=== PATIENT | male | born 1965 | race Asian ===

== ENCOUNTER 2019-07-21 04:20 | Inpatient (IN) | payer MEDICAID ==
[2019-07-21] VITALS (14 sets, daily range): BP systolic 110–137; BP diastolic 65–88
[~2019-07-21] VITALS: Ht 177.8 cm; Wt 104.5 kg
[2019-07-21] MEDS ORDERED: METF500T PO (04:45)
[2019-07-21] MEDS ORDERED: ATOR10TA87 PO (04:47)
--- NOTE | 2019-07-21 04:47 | NUR ---
PER VERBALIZATION FROM DR. CASTILLO NOT TO ORDER ACS PROTOCOL BUT TO ORDER EKG AND 0 HOUR TROPONIN, THAT ROSALES DID AND EXTENSIVE WORK UP AND DR. CASTILLO WILL ORDER ANYTHING NEEDED OTHER THAN THE 2 VERBALIZED ORDERS DURING TRIAGE
[2019-07-21] MEDS: nitroGLYCERIN-Tridil 50MG/D5W 250 ML IV PRN (05:07)
--- NOTE | 2019-07-21 05:56 | NUR ---
Pt says pn is coming and going now with no add'l. relief from cont. NTG admin
--- NOTE | 2019-07-21 05:58 | NUR ---
NTG increased to 20 mcg/min
[2019-07-21] MEDS ORDERED: potassium Cl 20 mEq SR tablet PO PRN (06:10)
[2019-07-21] MEDS ORDERED: magnesium Cl slow-release 64mg tablet PO PRN (06:10)
[2019-07-21] MEDS ORDERED: magnesium 2GM in 50ml NS 50 ML IV PRN (06:10)
[2019-07-21] MEDS ORDERED: morphine 2 MG/ML inj. syringe IV PRN (06:10)
[2019-07-21] MEDS ORDERED: magnesium 4gm in 100ml NS 100 ML IV PRN (06:10)
[2019-07-21] MEDS ORDERED: acetaminophen 325mg tablet PO PRN ×2 (06:10→18:40)
[2019-07-21] MEDS ORDERED: potassium CL 10mEq/100ml bag 100 ML IV PRN ×2 (06:10)
[2019-07-21] MEDS ORDERED: ondansetron/PF 4mg/2ml inj IV PRN (06:10)
[2019-07-21] MEDS ORDERED: pantoprazole 40 MG vial IV ONE (06:35)
[2019-07-21] MEDS ORDERED: enoxaparin 80mg/0.8ml syringe SUBCUT ONE (06:50)
[2019-07-21] MEDS ORDERED: enoxaparin 30mg/0.3ml syringe SUBCUT ONE (06:50)
[2019-07-21] MEDS: K and/or MAG REPLACEMENT MC SCH ×2 (08:00→20:00)
[2019-07-21] MEDS ORDERED: heparin 25,000 UNIT/250ml bag 250 ML IV SCH (10:26)
[2019-07-21] MEDS ORDERED: heparin 10,000 units/1 ML INJ IV ONE (10:30)
[2019-07-21] MEDS ORDERED: normal saline 1000ml 1,000 ML IV SCH (10:30)
[2019-07-21] MEDS ORDERED: heparin 10,000 units/1 ML INJ IV PRN (10:30)
--- NOTE | 2019-07-21 10:30 | NUR ---
New orders from Dr. Khalil: Metoprolol 25 mg PO BID, Normal saline @ 100 mL/hour, chest x-ray, heparin gtt per protocol. NPO now.
[2019-07-21 10:58] LABS: BASOPHILS % (AUTO) 0.1 % (0-1); EOSINOPHILS % (AUTO) 0 % (0-6); HEMATOCRIT 46.9 % (42.0-52.0); HEMOGLOBIN 15.6 g/dl (14.0-17.9); LYMPHOCYTES # (AUTO) 1.2 X10'3 (1.1-4.8); LYMPHOCYTES % (AUTO) 10.9 % (21-51); MEAN CORPUSCULAR HEMOGLOBIN 28.2 PG (27.0-31.0); MEAN CORPUSCULAR HGB CONC 33.2 g/dL (33.0-36.5); MEAN CORPUSCULAR VOLUME 84.8 FL (78-98); MONOCYTES # (AUTO) 0.8 X10'3 (0-0.9); MONOCYTES % (AUTO) 7.1 % (2-12); NEUTROPHILS # (AUTO) 9.2 X10'3 (1.8-7.7); NEUTROPHILS % (AUTO) 81.9 % (42-75); PLATELET COUNT 189 X10'3 (140-440); RED BLOOD COUNT 5.53 X10'6 (4.70-6.10); RED CELL DISTRIBUTION WIDTH 13.4 % (11.5-14.5); WHITE BLOOD COUNT 11.2 X10'3 (4.5-11.0)
[2019-07-21 11:01] LABS: PARTIAL THROMBOPLASTIN TIME 30 SECONDS (22-32)
[2019-07-21] MEDS: metoprolol tartrate 25mg tablet PO SCH ×2 (12:08→19:38)
[2019-07-21 13:05] LABS: ALBUMIN 3.4 G/DL (3.4-5.0); ANION GAP 9 (8-16); BLOOD UREA NITROGEN 16 MG/DL (7-18); BUN/CREATININE RATIO 17.4 (5.4-32.0); CALCIUM 8.2 MG/DL (8.5-10.1); CHLORIDE 107 MMOL/L (99-107); CREATININE 0.92 MG/DL (0.60-1.10); GLUCOSE 163 MG/DL (70-104); POTASSIUM 3.6 MMOL/L (3.5-5.1); SODIUM 142 MMOL/L (135-145); TOTAL CARBON DIOXIDE 26.4 MMOL/L (24-32); eGFR 86 ML/MIN
--- NOTE | 2019-07-21 13:29 | NUR ---
PAGER ID: [phone] MESSAGE: [phone] [id number]. LULU pt. Leticia Mujica. pt trop came back at .03. pt. is going to [facility] at 1530. thank you. NORMAN Freeman
[2019-07-21 13:35] LABS: MAGNESIUM 1.8 MG/DL (1.5-2.4)
--- NOTE | 2019-07-21 16:13 | NUR ---
Critical lab: Troponin 35.89. Notified primary RNLori.
[2019-07-21] MEDS ORDERED: iohexol 350 MG/ML 50ML vial IV ONE (16:24)
[2019-07-21] MEDS ORDERED: LIDOcaine 1% (10mg/ml)w/preservative injection 20ml MDV ONE (16:24)
[2019-07-21] MEDS ORDERED: iohexol 350MG/ML 100ml bottle IV ONE (16:24)
[2019-07-21] MEDS ORDERED: fentaNYL/PF 50MCG/1 ML 2ML syringe ONE (16:24)
[2019-07-21] MEDS ORDERED: midazolam 2 mg/2 ml injection ONE (16:24)
--- NOTE | 2019-07-21 16:53 | NUR ---
pt. left floor for Heart Cath
[2019-07-21] MEDS ORDERED: tirofiban 5mg in NS 100mL 100 ML IV ONE (17:23)
--- NOTE | 2019-07-21 17:55 | NUR ---
received pt report from Merry AUSTIN
--- NOTE | 2019-07-21 18:10 | NUR ---
pt arrived from clinical lab clerk. rt groin no hematoma and right pedal pulse palpable; will continue to monitor.
[2019-07-21] MEDS ORDERED: aspirin 81mg tab.chew PO ONE (18:40)
[2019-07-21] MEDS ORDERED: magnesium hydroxide 30ml (MOM) UD suspension PO PRN (18:40)
[2019-07-21] MEDS ORDERED: morphine 4 MG/ML inj SYRINge IV PRN (18:40)
[2019-07-21] MEDS ORDERED: nitroGLYCERIN 0.4mg SUBLingual tab SL PRN (18:40)
[2019-07-21] MEDS ORDERED: proCHLORperazine 10 MG/2 ml inj IV PRN (18:40)
[2019-07-21] MEDS ORDERED: cyclobenzaprine 10mg tablet PO PRN (18:40)
[2019-07-21] MEDS ORDERED: OXAZEpam 15mg capsule PO PRN (18:40)
[2019-07-21] MEDS ORDERED: HYDROcodone/acetaminophen 10/325mg tab PO PRN (18:40)
--- NOTE | 2019-07-21 18:43 | NUR ---
Patient report given to Damion AUSTIN, questions answered & plan of care reviewed with .
[2019-07-21] MEDS ORDERED: furosemide 20 MG/2 ML vial IV ONE (19:05)
[2019-07-21] MEDS: furosemide 40mg tablet PO SCH (19:38)
[2019-07-21] MEDS: docusate sod 100mg capsule PO SCH (19:38)
[2019-07-21] MEDS: potassium chloride 10mEq ER tablet PO SCH (19:38)
[2019-07-21] MEDS: sodium chloride 0.45% 1,000 ML IV SCH (19:40)
[2019-07-21 20:42] LABS: HEMOGLOBIN A1C 5.6 % (4.5-6.2)
[2019-07-21] MEDS ORDERED: temazepam 15mg capsule PO PRN (21:00)
[2019-07-21] MEDS: HYDROcodone/acetaminophen 10/325mg tab PO PRN (21:26)
[2019-07-22] VITALS (29 sets, daily range): BP systolic 104–131; BP diastolic 54–90
[2019-07-22 02:05] LABS: BASOPHILS % (AUTO) 0.1 % (0-1); EOSINOPHILS % (AUTO) 0.1 % (0-6); HEMATOCRIT 45.2 % (42.0-52.0); HEMOGLOBIN 15.1 g/dl (14.0-17.9); LYMPHOCYTES # (AUTO) 1.4 X10'3 (1.1-4.8); LYMPHOCYTES % (AUTO) 12.1 % (21-51); MEAN CORPUSCULAR HGB CONC 33.5 g/dL (33.0-36.5); MEAN CORPUSCULAR VOLUME 83.4 FL (78-98); MEAN PLATELET VOLUME 9.4 FL (7.4-10.4); MONOCYTES # (AUTO) 1.2 X10'3 (0-0.9); MONOCYTES % (AUTO) 10.2 % (2-12); NEUTROPHILS % (AUTO) 77.5 % (42-75); PLATELET COUNT 182 X10'3 (140-440); RED BLOOD COUNT 5.42 X10'6 (4.70-6.10); RED CELL DISTRIBUTION WIDTH 13.6 % (11.5-14.5); WHITE BLOOD COUNT 11.6 X10'3 (4.5-11.0)
[2019-07-22 02:11] LABS: ALANINE AMINOTRANSFERASE 78 U/L (12-78); ALBUMIN 3.2 G/DL (3.4-5.0); ALKALINE PHOSPHATASE 64 IU/L (46-116); ANION GAP 6 (8-16); ASPARTATE AMINO TRANSFERASE 404 U/L (10-37); BILIRUBIN,TOTAL 0.8 MG/DL (0.1-1.0); BLOOD UREA NITROGEN 12 MG/DL (7-18); BUN/CREATININE RATIO 13.8 (5.4-32.0); CHLORIDE 104 MMOL/L (99-107); CREATININE 0.87 MG/DL (0.60-1.10); GLUCOSE 126 MG/DL (70-104); MAGNESIUM 1.7 MG/DL (1.5-2.4); POTASSIUM 3.3 MMOL/L (3.5-5.1); SODIUM 139 MMOL/L (135-145); TOTAL CARBON DIOXIDE 28.7 MMOL/L (24-32); TOTAL PROTEIN 6.3 G/DL (6.4-8.2); eGFR > 90 ML/MIN
[2019-07-22 02:40] LABS: TROPONIN I 79.92 NG/ML (0.0-0.05)
[2019-07-22] MEDS: HYDROcodone/acetaminophen 10/325mg tab PO PRN (03:03)
[2019-07-22] MEDS: nitroGLYCERIN-Tridil 50MG/D5W 250 ML IV PRN (03:29)
[2019-07-22] MEDS: K and/or MAG REPLACEMENT MC SCH ×2 (08:00→20:00)
[2019-07-22] MEDS: metoprolol tartrate 25mg tablet PO SCH ×2 (08:03→20:08)
[2019-07-22] MEDS: potassium chloride 10mEq ER tablet PO SCH ×2 (08:03→20:05)
[2019-07-22] MEDS: aspirin 81mg tab.chew PO SCH (08:04)
[2019-07-22] MEDS: potassium Cl 20 mEq SR tablet PO PRN ×3 (08:04→17:50)
[2019-07-22] MEDS: atorvastatin 20mg tablet PO SCH (08:04)
[2019-07-22] MEDS: docusate sod 100mg capsule PO SCH ×2 (08:04→20:05)
[2019-07-22] MEDS: lisinopril 5mg tablet PO SCH (08:04)
[2019-07-22] MEDS: furosemide 40mg tablet PO SCH ×2 (08:05→20:32)
[2019-07-22] MEDS: sodium chloride 0.45% 1,000 ML IV SCH (08:05)
--- NOTE | 2019-07-22 10:38 | NUR ---
Dr Khalil notified of surgical consult. He thanks for the call, and that he would call Dr Mireles. No new orders
[2019-07-22] MEDS ORDERED: ATOR20TA66 PO (10:47)
[2019-07-22] MEDS ORDERED: DORZ10DR2 EACHEYE (10:47)
[2019-07-22] MEDS ORDERED: XAL0.005OS EACHEYE (10:47)
--- NOTE | 2019-07-22 11:08 | NUR ---
Spoke with Dr Khalil; orders received to Stop heparin and give plavix; then have chemical lab technician angio seal 2-3 hours after heparin off. Titrate nitro off after hemostasis if patient remains stable. plan for patient to discharged, and then come back in 6 weeks for surgical needs.
[2019-07-22] MEDS ORDERED: clopidogrel 300mg tablet PO ONE (11:10)
--- NOTE | 2019-07-22 12:02 | NUR ---
DM Consult: Pt A1C less than 7 and not appropriate for DM ed at this time. Addendum: 07/22/19 at [address] Amended: Links added.
--- NOTE | 2019-07-22 14:41 | NUR ---
DM consult: Pt with A1c 5.6, DM education not warranted at this time. Will continue to follow. Addendum: 07/22/19 at [address] Amended: Links added.
--- NOTE | 2019-07-22 18:15 | NUR ---
Patient in room ICU 2037. I have received report and had the opportunity to ask questions and assume patient care. Pt received eating dinner. Awake alert & oriented on room air, oxygen saturation 95%. Denies chest pain. Right femoral site with occlusive dressing, no hematoma or bleeding pedal pulse is palpable & capillary refill is brisk to all nail beds. Right EJ catheter is saline locked and capped. left F/A #20 G peripheral IV with NS TKO. No distress at change of shift.
--- NOTE | 2019-07-22 20:00 | NUR ---
Pt declined PM care/bath. Would like to have bath rendered in AM.
[2019-07-23] VITALS (19 sets, daily range): BP systolic 101–130; BP diastolic 46–90
[2019-07-23 04:08] LABS: BASOPHILS % (AUTO) 0.2 % (0-1); EOSINOPHILS % (AUTO) 0.3 % (0-6); HEMATOCRIT 49.7 % (42.0-52.0); HEMOGLOBIN 16.9 g/dl (14.0-17.9); LYMPHOCYTES # (AUTO) 1.4 X10'3 (1.1-4.8); LYMPHOCYTES % (AUTO) 13.3 % (21-51); MEAN CORPUSCULAR HEMOGLOBIN 28.6 PG (27.0-31.0); MEAN CORPUSCULAR HGB CONC 33.9 g/dL (33.0-36.5); MEAN CORPUSCULAR VOLUME 84.3 FL (78-98); MEAN PLATELET VOLUME 9.1 FL (7.4-10.4); MONOCYTES # (AUTO) 1.2 X10'3 (0-0.9); MONOCYTES % (AUTO) 10.9 % (2-12); NEUTROPHILS # (AUTO) 8.1 X10'3 (1.8-7.7); NEUTROPHILS % (AUTO) 75.3 % (42-75); PLATELET COUNT 154 X10'3 (140-440); RED BLOOD COUNT 5.89 X10'6 (4.70-6.10); RED CELL DISTRIBUTION WIDTH 13.4 % (11.5-14.5); WHITE BLOOD COUNT 10.7 X10'3 (4.5-11.0)
[2019-07-23 04:18] LABS: ALBUMIN 3.1 G/DL (3.4-5.0); ANION GAP 3 (8-16); BLOOD UREA NITROGEN 11 MG/DL (7-18); BUN/CREATININE RATIO 10.6 (5.4-32.0); CALCIUM 8.5 MG/DL (8.5-10.1); CHLORIDE 105 MMOL/L (99-107); CREATININE 1.04 MG/DL (0.60-1.10); GLUCOSE 103 MG/DL (70-104); POTASSIUM 3.5 MMOL/L (3.5-5.1); SODIUM 139 MMOL/L (135-145); TOTAL CARBON DIOXIDE 30.8 MMOL/L (24-32); eGFR 74 ML/MIN
--- NOTE | 2019-07-23 06:26 | NUR ---
Problems reprioritized. Patient report given, questions answered & plan of care reviewed with Jhoana AUSTIN. Bedside report given. Right femoral site & pedal pulses checked. Pt stable & pain free at change of shift.
--- NOTE | 2019-07-23 06:57 | NUR ---
Patient in room ICU 2037. I have received report from NORMAN Quinonez and had the opportunity to ask questions and assume patient care.
[2019-07-23] MEDS: K and/or MAG REPLACEMENT MC SCH ×2 (08:00→18:49)
[2019-07-23] MEDS: potassium chloride 10mEq ER tablet PO SCH ×2 (08:11→19:54)
[2019-07-23] MEDS: aspirin 81mg tab.chew PO SCH (08:11)
[2019-07-23] MEDS: lisinopril 5mg tablet PO SCH (08:12)
[2019-07-23] MEDS: metoprolol tartrate 25mg tablet PO SCH ×2 (08:12→19:55)
[2019-07-23] MEDS: clopidogrel 75mg tablet PO SCH (08:13)
[2019-07-23] MEDS: atorvastatin 20mg tablet PO SCH (08:13)
[2019-07-23] MEDS: furosemide 40mg tablet PO SCH ×2 (08:13→19:54)
[2019-07-23] MEDS: docusate sod 100mg capsule PO SCH ×2 (08:13→19:54)
--- NOTE | 2019-07-23 15:50 | NUR ---
Problems reprioritized. Patient report given, questions answered & plan of care reviewed with NORMAN Edwards. Placed tele monitor on patient #[id number], transferred patient to PCU via wheelchair, all patient needs met at this time.
--- NOTE | 2019-07-23 15:50 | NUR ---
Patient in room PCU 3014. I have received report from NORMAN Ely and had the opportunity to ask questions and assume patient care.
--- NOTE | 2019-07-23 15:53 | NUR ---
pt arrived on unit.
--- NOTE | 2019-07-23 16:30 | NUR ---
I have reviewed and agree with the physical assessment done by Jhoana Aquino RN.
--- NOTE | 2019-07-23 18:11 | NUR ---
Problems reprioritized. Patient report given, questions answered & plan of care reviewed with NORMAN Ferguson.
--- NOTE | 2019-07-23 18:25 | NUR ---
Patient in room PCU 3014. I have received report from Grace AUSTIN and had the opportunity to ask questions and assume patient care.
[2019-07-24 02:00] VITALS: BP 120/83
[2019-07-24 06:00] VITALS: BP 123/80
--- NOTE | 2019-07-24 06:10 | NUR ---
Problems reprioritized. Patient report given, questions answered & plan of care reviewed with Grace RN
[2019-07-24 06:15] LABS: BASOPHILS % (AUTO) 0.3 % (0-1); EOSINOPHILS # (AUTO) 0.1 X10'3 (0-0.9); EOSINOPHILS % (AUTO) 0.5 % (0-6); HEMATOCRIT 52.9 % (42.0-52.0); HEMOGLOBIN 17.8 g/dl (14.0-17.9); LYMPHOCYTES # (AUTO) 1.6 X10'3 (1.1-4.8); LYMPHOCYTES % (AUTO) 15.5 % (21-51); MEAN CORPUSCULAR HEMOGLOBIN 28.3 PG (27.0-31.0); MEAN CORPUSCULAR HGB CONC 33.6 g/dL (33.0-36.5); MEAN CORPUSCULAR VOLUME 84.2 FL (78-98); MEAN PLATELET VOLUME 9.4 FL (7.4-10.4); MONOCYTES # (AUTO) 1.2 X10'3 (0-0.9); MONOCYTES % (AUTO) 11.9 % (2-12); NEUTROPHILS # (AUTO) 7.3 X10'3 (1.8-7.7); NEUTROPHILS % (AUTO) 71.8 % (42-75); PLATELET COUNT 171 X10'3 (140-440); RED BLOOD COUNT 6.29 X10'6 (4.70-6.10); RED CELL DISTRIBUTION WIDTH 13.6 % (11.5-14.5); WHITE BLOOD COUNT 10.1 X10'3 (4.5-11.0)
[2019-07-24 06:20] LABS: ALBUMIN 3.1 G/DL (3.4-5.0); ANION GAP 7 (8-16); BLOOD UREA NITROGEN 18 MG/DL (7-18); BUN/CREATININE RATIO 19.4 (5.4-32.0); CHLORIDE 104 MMOL/L (99-107); CREATININE 0.93 MG/DL (0.60-1.10); GLUCOSE 108 MG/DL (70-104); MAGNESIUM 2.3 MG/DL (1.5-2.4); POTASSIUM 3.5 MMOL/L (3.5-5.1); SODIUM 138 MMOL/L (135-145); TOTAL CARBON DIOXIDE 27.1 MMOL/L (24-32); eGFR 85 ML/MIN
--- NOTE | 2019-07-24 06:28 | NUR ---
Patient in room PCU 3014. I have received report from NORMAN Ferguson and had the opportunity to ask questions and assume patient care.
[2019-07-24] MEDS: atorvastatin 20mg tablet PO SCH (07:50)
[2019-07-24] MEDS: furosemide 40mg tablet PO SCH ×2 (07:50→20:13)
[2019-07-24] MEDS: lisinopril 5mg tablet PO SCH (07:50)
[2019-07-24] MEDS: aspirin 81mg tab.chew PO SCH (07:50)
[2019-07-24] MEDS: potassium chloride 10mEq ER tablet PO SCH ×2 (07:50→20:12)
[2019-07-24] MEDS: clopidogrel 75mg tablet PO SCH (07:50)
[2019-07-24] MEDS: metoprolol tartrate 25mg tablet PO SCH ×2 (07:51→20:13)
[2019-07-24] MEDS: docusate sod 100mg capsule PO SCH ×2 (07:58→20:14)
[2019-07-24] MEDS: K and/or MAG REPLACEMENT MC SCH ×2 (07:59→18:42)
[2019-07-24 11:00] VITALS: BP 118/83
--- NOTE | 2019-07-24 11:40 | NUR ---
Problems reprioritized. Patient report given, questions answered & plan of care reviewed with NORMAN Mariee.
--- NOTE | 2019-07-24 18:14 | NUR ---
Problems reprioritized. Patient report given, questions answered & plan of care reviewed with Marty RN.
[2019-07-24 19:00] VITALS: BP 138/90
[2019-07-24] MEDS: dorzolamide 2% ophthalmic drops 10ml EACHEYE SCH (20:12)
[2019-07-24] MEDS ORDERED: latanoprost 0.005% 2.5ml ophthalmic drops EACHEYE SCH (21:00)
[2019-07-24 23:00] VITALS: BP 132/89
[2019-07-25 03:00] VITALS: BP 112/77
[2019-07-25 06:00] VITALS: BP 123/88
[2019-07-25 06:14] LABS: BASOPHILS % (AUTO) 0.4 % (0-1); EOSINOPHILS # (AUTO) 0.1 X10'3 (0-0.9); EOSINOPHILS % (AUTO) 0.7 % (0-6); HEMATOCRIT 49.1 % (42.0-52.0); HEMOGLOBIN 16.8 g/dl (14.0-17.9); LYMPHOCYTES # (AUTO) 1.5 X10'3 (1.1-4.8); LYMPHOCYTES % (AUTO) 20.2 % (21-51); MEAN CORPUSCULAR HEMOGLOBIN 28.6 PG (27.0-31.0); MEAN CORPUSCULAR HGB CONC 34.2 g/dL (33.0-36.5); MEAN CORPUSCULAR VOLUME 83.6 FL (78-98); MEAN PLATELET VOLUME 9.5 FL (7.4-10.4); MONOCYTES # (AUTO) 0.9 X10'3 (0-0.9); MONOCYTES % (AUTO) 12.1 % (2-12); NEUTROPHILS # (AUTO) 4.9 X10'3 (1.8-7.7); NEUTROPHILS % (AUTO) 66.6 % (42-75); PLATELET COUNT 191 X10'3 (140-440); RED BLOOD COUNT 5.87 X10'6 (4.70-6.10); RED CELL DISTRIBUTION WIDTH 13.3 % (11.5-14.5); WHITE BLOOD COUNT 7.4 X10'3 (4.5-11.0)
[2019-07-25 06:15] LABS: ANION GAP 9 (8-16); BLOOD UREA NITROGEN 22 MG/DL (7-18); BUN/CREATININE RATIO 22.4 (5.4-32.0); CALCIUM 8.5 MG/DL (8.5-10.1); CHLORIDE 105 MMOL/L (99-107); CREATININE 0.98 MG/DL (0.60-1.10); GLUCOSE 106 MG/DL (70-104); MAGNESIUM 2.2 MG/DL (1.5-2.4); POTASSIUM 3.3 MMOL/L (3.5-5.1); SODIUM 141 MMOL/L (135-145); TOTAL CARBON DIOXIDE 27.1 MMOL/L (24-32); eGFR 80 ML/MIN
--- NOTE | 2019-07-25 06:32 | NUR ---
Problems reprioritized. Patient report given, questions answered & plan of care reviewed with CHERIE RN.
--- NOTE | 2019-07-25 06:58 | NUR ---
Patient in room PCU 3014. I have received report from NORMAN GUEVARA and had the opportunity to ask questions and assume patient care.
--- NOTE | 2019-07-25 07:21 | NUR ---
PAGER ID: [phone] MESSAGE: DR. CONCEPCION, [id number]/Josue LECHUGA+ [phone]. NEED REPLACEMENT ORDERS PLEASE. CHERIE [phone], TY
[2019-07-25] MEDS: K and/or MAG REPLACEMENT MC SCH (08:00)
[2019-07-25] MEDS: dorzolamide 2% ophthalmic drops 10ml EACHEYE SCH (08:27)
[2019-07-25] MEDS: aspirin 81mg tab.chew PO SCH (08:28)
[2019-07-25] MEDS: docusate sod 100mg capsule PO SCH (08:29)
[2019-07-25] MEDS: atorvastatin 20mg tablet PO SCH (08:30)
[2019-07-25] MEDS: potassium chloride 10mEq ER tablet PO SCH (08:30)
[2019-07-25] MEDS: furosemide 40mg tablet PO SCH (08:30)
[2019-07-25] MEDS: metoprolol tartrate 25mg tablet PO SCH (08:31)
[2019-07-25] MEDS: lisinopril 5mg tablet PO SCH (08:32)
[2019-07-25] MEDS: clopidogrel 75mg tablet PO SCH (08:32)
[2019-07-25 11:00] VITALS: BP 109/84
[2019-07-25] MEDS ORDERED: potassium Cl 20 mEq SR tablet PO STA (11:23)
[2019-07-25] MEDS ORDERED: ASPI-1265 PO (11:36)
[2019-07-25] MEDS ORDERED: LISI-642 PO (11:36)
[2019-07-25] MEDS ORDERED: METO25TA6 PO (11:36)
[2019-07-25] MEDS ORDERED: NITR0.4T51 SL (11:36)
[2019-07-25] MEDS ORDERED: CLOP75TA35 PO (11:36)
[2019-07-25] MEDS ORDERED: POTA10TA19 PO (11:36)
[2019-07-25] MEDS ORDERED: METF500T PO (11:36)
[2019-07-25] MEDS ORDERED: ATOR20TA66 PO (11:36)
--- NOTE | 2019-07-25 12:55 | NUR ---
DISCUSSED DISCHARGE INSTRUCTIONS WITH PT AND HIS DAUGHTER BY CELL PHONE, RE:LIMITED SLOVENIAN, DAUGHTER UNDERSTANDS.
--- NOTE | 2019-07-25 13:20 | NUR ---
PIV X2 2 DC'D BY NORMAN VILLA.
[2019-07-26] MEDS ORDERED: furosemide 40mg tablet PO SCH (08:00)
== END 2019-07-25 13:27 | disposition home or self-care (01) | DRG 190 ==
LOC: ER 04:21 → ED HOLD 06:13 → PCU 3S 07:38 → ICU 2S 18:15 → PCU 3S 07-23 15:50
PROVIDERS: ADMIT Internal Medicine; ATTEND Internal Medicine Critical Care Medicine
PROC: 4A023N7 Measurement of Cardiac Sampling and Pressure, Left Heart, Percutaneous Approach (ICD-10-PCS; principal; 2019-07-21)
PROC: B2111ZZ Fluoroscopy of Multiple Coronary Arteries using Low Osmolar Contrast (ICD-10-PCS; 2019-07-21)
PROC: B2151ZZ Fluoroscopy of Left Heart using Low Osmolar Contrast (ICD-10-PCS; 2019-07-21)
PROC: B41F1ZZ Fluoroscopy of Right Lower Extremity Arteries using Low Osmolar Contrast (ICD-10-PCS; 2019-07-21)
DX: I21.09 ST elevation (STEMI) myocardial infarction involving other coronary artery of anterior wall (principal); I50.9 Heart failure, unspecified; E11.9 Type 2 diabetes mellitus without complications; I11.0 Hypertensive heart disease with heart failure; E78.00 Pure hypercholesterolemia, unspecified; E78.5 Hyperlipidemia, unspecified; I25.10 Atherosclerotic heart disease of native coronary artery without angina pectoris; J98.11 Atelectasis; K76.0 Fatty (change of) liver, not elsewhere classified; Z79.899 Other long term (current) drug therapy; Z79.82 Long term (current) use of aspirin; I25.2 Old myocardial infarction
CPT/HCPCS: 36415; 71045; 76700; 80048; 80053; 82948; 83036; 83735; 84484; 85025; 85347; 85610; 85730; 87081; 93005; 93306; 93880; 93971; 96374; 96375; 99285; C9113; G0378; J1644; J1940; J2001; J2250; J3010; J3246; J3490; J7030; Q9967

== ENCOUNTER 2019-09-29 05:24 | Inpatient (IN) | payer MEDICAID ==
[2019-09-22 14:22] LABS: CLARITY,URINE CLEAR (Clear); COLOR,URINE YELLOW (Yellow); GLUCOSE, URINE NEGATIVE (Neg); KETONES,URINE NEGATIVE (Neg); LEUKOCYTE ESTERASE ,URINE NEGATIVE (Neg); NITRITES, URINE NEGATIVE (Neg); OCCULT BLOOD,URINE NEGATIVE (Neg); PROTEIN,URINE NEGATIVE (Neg); UROBILINOGEN,URINE 0.2 E.U/dL (0.2-1.0)
[2019-09-22 14:26] LABS: BASOPHILS % (AUTO) 0.5 % (0-1); EOSINOPHILS # (AUTO) 0.1 X10'3 (0-0.9); EOSINOPHILS % (AUTO) 1.3 % (0-6); LYMPHOCYTES # (AUTO) 1.7 X10'3 (1.1-4.8); LYMPHOCYTES % (AUTO) 28.5 % (21-51); MEAN CORPUSCULAR HEMOGLOBIN 27.7 PG (27.0-31.0); MEAN CORPUSCULAR HGB CONC 32.7 g/dL (33.0-36.5); MEAN CORPUSCULAR VOLUME 84.7 FL (78-98); MEAN PLATELET VOLUME 9.2 FL (7.4-10.4); MONOCYTES # (AUTO) 0.7 X10'3 (0-0.9); MONOCYTES % (AUTO) 11.2 % (2-12); NEUTROPHILS # (AUTO) 3.6 X10'3 (1.8-7.7); NEUTROPHILS % (AUTO) 58.5 % (42-75); PRE OP HEMATOCRIT 50.1 % (42.0-52.0); PRE OP HEMOGLOBIN 16.4 g/dL (14.0-17.9); PRE OP PLATELET COUNT 185 X10'3 (140-440); RED BLOOD COUNT 5.91 X10'6 (4.70-6.10); RED CELL DISTRIBUTION WIDTH 13.6 % (11.5-14.5)
[2019-09-22 14:36] LABS: HEMOGLOBIN A1C 5.8 % (4.5-6.2); PRE OP PROTIME 10.2 SECONDS (9.0-12.0)
[2019-09-22 14:37] LABS: ALBUMIN 3.7 G/DL (3.4-5.0); ALBUMIN/GLOBULIN RATIO 1.2 (1.1-1.5); ALKALINE PHOSPHATASE 88 IU/L (46-116); BLOOD UREA NITROGEN 14 MG/DL (7-18); BUN/CREATININE RATIO 13.1 (5.4-32.0); CALCIUM 8.4 MG/DL (8.5-10.1); CHLORIDE 112 MMOL/L (99-107); CREATININE 1.07 MG/DL (0.60-1.10); PRE OP ALT 52 U/L (30-65); PRE OP ANION GAP 5 (8-16); PRE OP AST 25 U/L (10-37); PRE OP BILIRUB, TOTAL 0.7 MG/DL (0.0-1.0); PRE OP GLUCOSE 90 MG/DL (70-104); PRE OP POTASSIUM 4.7 MMOL/L (3.4-5.1); PRE OP SODIUM 146 MMOL/L (135-145); TOTAL CARBON DIOXIDE 28.6 MMOL/L (24-32); TOTAL PROTEIN 6.9 G/DL (6.4-8.2); eGFR 72 ML/MIN
[2019-09-22 14:38] LABS: UA COLLECTION TYPE CLN CATCH MIDSTREAM
[2019-09-22 15:10] LABS: ABG HCO3 24.3 mmol/L (22.0-26.0); ABG OXYGEN SATURATION 97.2 % (95-98); ABG PCO2 (T) 38.6 mmHg (35.0-45.0); ABG PH (T) 7.417 (7.350-7.450); ABG PO2 (T) 90.3 mmHg (83-108); ALLEN'S TEST POSITIVE; FCOHb 0.7 % (0.5-1.5); FMetHb 0.2 % (0.3-1.12); FO2Hb 96.3 % (94-100); TOTAL HEMOGLOBIN 16.9 G/dl (14.0-17.9)
[~2019-09-29] VITALS: Ht 170.2 cm; Wt 99.6 kg
[2019-09-29] VITALS (18 sets, daily range): BP systolic 79–134; BP diastolic 48–85
[~2019-09-29 05:24] MED LIST: AMOX250S3 PO; ASPI-611 PO; ATOR40TA PO; CLOP75TA15 PO; LISI40TA4 PO; LORazepam 2 mg/ml vial IV PRN; METF-900 PO; METO-539 PO; NITR0.4T51 SL; POTA20TA19 PO; XAL0.005OS EACHEYE; albuterol 2.5 MG/3 ML nebule NEB PRN; ceFAZolin 1000mg inj ONE; ringers solution, lacted 1,000 ML IV SCH
[2019-09-29] MEDS ORDERED: mupirocin 2% nasal ointment 1gm UD NS ONE (05:30)
[2019-09-29] MEDS ORDERED: vancomycin 1,500 MG in NS 500ml IV soln IV ONE (05:30)
[2019-09-29] MEDS: Insulin Reg/NS 100units/100mL 100 ML IV SCH ×2 (05:30→14:16)
[2019-09-29] MEDS ORDERED: gabapentin 400mg capsule PO ONE (05:30)
[2019-09-29] MEDS ORDERED: metoprolol tartrate 12.5mg (1/2 tablet) PO ONE (05:30)
[2019-09-29] MEDS ORDERED: famotidine 20mg tablet PO ONE (05:30)
[2019-09-29] MEDS ORDERED: cefazolin/dext.iso 2gm/50ml 50 ML IV ONE (05:30)
[2019-09-29] MEDS ORDERED: LIDOcaine 1% (10mg/ml) 2ml vial ONE (05:49)
[2019-09-29] MEDS ORDERED: SUFENTANIL CITRATE 50 MCG/ML 2ml ampule IV ONE (06:55)
[2019-09-29] MEDS ORDERED: MIDAZolam 1mg/ml 10ml vial ONE (06:55)
[2019-09-29] MEDS ORDERED: propofol inj 20 ML IV ONE (06:56)
[2019-09-29] MEDS ORDERED: rocuronium 10mg/ml inj IV ONE ×3 (06:58→08:34)
[2019-09-29] MEDS ORDERED: aminocaproic acid 250 MG/1 ML inj. ONE ×2 (07:04→10:00)
[2019-09-29] MEDS ORDERED: sevoflurane 250ml liquid IH ONE (07:04)
[2019-09-29] MEDS ORDERED: protamine sulf. 10mg/ml inj. IV ONE (07:04)
[2019-09-29] MEDS ORDERED: nitroGLYCERIN in D5W 50mg/250ml (Tridil) infusion IV ONE (07:04)
[2019-09-29 07:55] LABS: ABG BASE EXCESS -0.3 mmol/L (-2.0-3.0); ABG OXYGEN SATURATION 95.1 % (95-98); ABG PH 7.382 (7.350-7.450); ABG PO2 72.1 mmHg (60.0-100.0); CL (ABG) 106 mmol/L (99-107); FMetHb 0.2 % (0.3-1.12); GLUCOSE (ABG) 100 mg/dl (70-104); IONIZED CA (ABG) 1.13 mmol/L (1.03-1.32); K (ABG) 3.5 mmol/L (3.3-5.1); NA (ABG) 138 mmol/L (135-145); TOTAL HEMOGLOBIN 14.8 G/dl (14.0-17.9)
[2019-09-29] MEDS ORDERED: ePHEDrine 50MG/ML INJ. ONE (08:01)
[2019-09-29] MEDS ORDERED: heparin 10,000 units/1 ML INJ IR ONE (08:04)
[2019-09-29] MEDS ORDERED: papaverine 30 mg/ml 2ml inj. IA ONE (08:05)
[2019-09-29 08:40] LABS: ABG BASE EXCESS VENOUS 0.8 mmol/L; ABG PCO2 VENOUS 54.8 mmHg; CL (ABG) 106 mmol/L (99-107); FCOHb VENOUS 1.2 %; FMetHb VENOUS 0.2 %; FO2Hb VENOUS 63.6 %; GLUCOSE (ABG) 84 mg/dl (70-104); IONIZED CA (ABG) 1.09 mmol/L (1.03-1.32); K (ABG) 3.7 mmol/L (3.3-5.1); NA (ABG) 138 mmol/L (135-145); TOTAL HEMOGLOBIN 14.8 G/dl (14.0-17.9)
[2019-09-29 09:15] LABS: ABG BASE EXCESS 0.4 mmol/L (-2.0-3.0); ABG HCO3 25.6 mmol/L (22.0-26.0); ABG OXYGEN SATURATION 99.7 % (95-98); ABG PCO2 43.5 mmHg (35.0-45.0); ABG PH 7.388 (7.350-7.450); ABG PO2 418.7 mmHg (60.0-100.0); CL (ABG) 104 mmol/L (99-107); FCOHb 0.7 % (0.5-1.5); FMetHb 0.1 % (0.3-1.12); FO2Hb 98.9 % (94-100); GLUCOSE (ABG) 86 mg/dl (70-104); IONIZED CA (ABG) 0.99 mmol/L (1.03-1.32); K (ABG) 5.6 mmol/L (3.3-5.1); NA (ABG) 134 mmol/L (135-145); TOTAL HEMOGLOBIN 12.1 G/dl (14.0-17.9)
[2019-09-29 09:15] LABS: ABG BASE EXCESS VENOUS 0.2 mmol/L; ABG HCO3 VENOUS 26.2 mmol/L; ABG PCO2 VENOUS 47.9 mmHg; ABG PO2 VENOUS 46.9 mmHg; CL (ABG) 103 mmol/L (99-107); FCOHb VENOUS 0.7 %; FHHb VENOUS 15.9 %; FO2Hb VENOUS 83.4 %; GLUCOSE (ABG) 87 mg/dl (70-104); IONIZED CA (ABG) 0.96 mmol/L (1.03-1.32); K (ABG) 5.6 mmol/L (3.3-5.1); NA (ABG) 134 mmol/L (135-145); TOTAL HEMOGLOBIN 11.9 G/dl (14.0-17.9)
[2019-09-29 09:45] LABS: ABG BASE EXCESS -0.9 mmol/L (-2.0-3.0); ABG HCO3 24.1 mmol/L (22.0-26.0); ABG OXYGEN SATURATION 99.4 % (95-98); ABG PCO2 41.2 mmHg (35.0-45.0); ABG PH 7.385 (7.350-7.450); ABG PO2 312.8 mmHg (60.0-100.0); CL (ABG) 105 mmol/L (99-107); FCOHb 0.4 % (0.5-1.5); FMetHb 0.4 % (0.3-1.12); FO2Hb 98.6 % (94-100); GLUCOSE (ABG) 99 mg/dl (70-104); IONIZED CA (ABG) 1.03 mmol/L (1.03-1.32); K (ABG) 4.8 mmol/L (3.3-5.1); NA (ABG) 135 mmol/L (135-145); TOTAL HEMOGLOBIN 12.6 G/dl (14.0-17.9)
[2019-09-29] MEDS ORDERED: phenylephrine 10mg/ml inj. ONE (10:00)
[2019-09-29] MEDS ORDERED: methylPREDNISolone sod. succ. 500mg inj ONE (10:00)
[2019-09-29] MEDS ORDERED: heparin 10,000 units/1 ML INJ ONE (10:00)
[2019-09-29] MEDS ORDERED: sodium bicarbonate (8.4%) 1 mEq/ml syringe ONE (10:00)
[2019-09-29] MEDS ORDERED: papaverine 30 mg/ml 2ml inj. ONE (10:00)
[2019-09-29] MEDS ORDERED: albumin (human) 25% 100 ML IV solution IV ONE (10:00)
[2019-09-29] MEDS ORDERED: potassium Cl 2 mEq/ml inj IV ONE (10:00)
[2019-09-29] MEDS ORDERED: magnesium 1 GM/2 ML inj ONE (10:00)
[2019-09-29] MEDS ORDERED: calcium chloride 100 MG/1 ML inj IV ONE (10:00)
[2019-09-29] MEDS ORDERED: LIDOcaine 2% (20 mg/ml) 5ml cardiac syringe ONE (10:00)
[2019-09-29 10:11] LABS: ABG BASE EXCESS 0.2 mmol/L (-2.0-3.0); ABG HCO3 24.8 mmol/L (22.0-26.0); ABG OXYGEN SATURATION 99.1 % (95-98); ABG PCO2 40.2 mmHg (35.0-45.0); ABG PH 7.408 (7.350-7.450); ABG PO2 237.6 mmHg (60.0-100.0); CL (ABG) 104 mmol/L (99-107); FCOHb 0.3 % (0.5-1.5); FMetHb 0.4 % (0.3-1.12); FO2Hb 98.4 % (94-100); GLUCOSE (ABG) 115 mg/dl (70-104); IONIZED CA (ABG) 1.41 mmol/L (1.03-1.32); K (ABG) 5.3 mmol/L (3.3-5.1); NA (ABG) 133 mmol/L (135-145); TOTAL HEMOGLOBIN 12.2 G/dl (14.0-17.9)
[2019-09-29 10:51] LABS: ABG BASE EXCESS VENOUS -1.9 mmol/L; ABG HCO3 VENOUS 24.1 mmol/L; ABG PCO2 VENOUS 46.2 mmHg; ABG PO2 VENOUS 33.5 mmHg; CL (ABG) 105 mmol/L (99-107); FCOHb VENOUS 0.9 %; FHHb VENOUS 32.7 %; FMetHb VENOUS 0.7 %; FO2Hb VENOUS 65.7 %; GLUCOSE (ABG) 125 mg/dl (70-104); K (ABG) 4.9 mmol/L (3.3-5.1); NA (ABG) 144 mmol/L (135-145); TOTAL HEMOGLOBIN 12.9 G/dl (14.0-17.9)
[2019-09-29] MEDS ORDERED: sodium chloride 0.45% 1,000 ML IV SCH (11:19)
[2019-09-29] MEDS ORDERED: Insulin Reg/NS 100units/100mL 100 ML IV SCH (11:19)
[2019-09-29] MEDS ORDERED: DOPamine 400mg/D5W 250ml 250 ML IV PRN (11:19)
[2019-09-29] MEDS ORDERED: nitroGLYCERIN-Tridil 50MG/D5W 250 ML IV PRN (11:19)
[2019-09-29] MEDS ORDERED: niCARDipine-NS 40mg/200ml IVPB 200 ML IV PRN (11:19)
[2019-09-29] MEDS ORDERED: sodium phosphate inj. 30 MMOL in dextrose 5%-water 240 ML IV PRN (11:20)
[2019-09-29] MEDS ORDERED: acetaminophen 325mg tablet PO PRN ×2 (11:20)
[2019-09-29] MEDS ORDERED: sodium phosphate inj. 15 MMOL in dextrose 5%-water 245 ML IV PRN (11:20)
[2019-09-29] MEDS ORDERED: pantoprazole 40 MG vial IV ONE (11:20)
[2019-09-29] MEDS ORDERED: bisacodyl 10mg suppository rectal RC PRN (11:20)
[2019-09-29] MEDS ORDERED: normal saline 250ml IV soln 250 ML IV PRN (11:20)
[2019-09-29] MEDS ORDERED: insulin glargine (Lantus) pen - multi-dose SQ PRN (11:20)
[2019-09-29] MEDS ORDERED: ondansetron/PF 4mg/2ml inj IV PRN (11:20)
[2019-09-29] MEDS ORDERED: morphine 4 MG/ML inj SYRINge IV PRN (11:20)
[2019-09-29] MEDS ORDERED: metoclopramide 5 mg/ml inj IV PRN (11:20)
[2019-09-29] MEDS ORDERED: dextrose 50%-water 50ml dispensing syringe IV PRN (11:20)
[2019-09-29] MEDS ORDERED: Neutra Phos packet PO PRN (11:20)
[2019-09-29] MEDS ORDERED: magnesium hydroxide 30ml (MOM) UD suspension PO PRN (11:20)
[2019-09-29] MEDS ORDERED: magnesium citrate 296ml oral solution PO PRN (11:20)
[2019-09-29] MEDS ORDERED: mineral oil 133ml enema RC PRN (11:20)
[2019-09-29] MEDS ORDERED: magnesium 4gm in 100ml NS 100 ML IV PRN (11:20)
[2019-09-29 11:50] LABS: ABG BASE EXCESS -3.5 mmol/L (-2.0-3.0); ABG HCO3 21.8 mmol/L (22.0-26.0); ABG OXYGEN SATURATION 98.7 % (95-98); ABG PCO2 (T) 40.5 mmHg (35.0-45.0); ABG PH (T) 7.349 (7.350-7.450); FCOHb 0.1 % (0.5-1.5); FMetHb 0.3 % (0.3-1.12); FO2Hb 98.3 % (94-100); RESPIRATORY RATE 12 b/min; TIDAL VOLUME 550 mL; TOTAL HEMOGLOBIN 14.9 G/dl (14.0-17.9)
[2019-09-29 11:51] LABS: BASOPHILS % (AUTO) 0.2 % (0-1); EOSINOPHILS % (AUTO) 0.3 % (0-6); HEMATOCRIT 42.9 % (42.0-52.0); HEMOGLOBIN 14.3 g/dl (14.0-17.9); LYMPHOCYTES # (AUTO) 1.4 X10'3 (1.1-4.8); LYMPHOCYTES % (AUTO) 11.8 % (21-51); MEAN CORPUSCULAR HEMOGLOBIN 28.2 PG (27.0-31.0); MEAN CORPUSCULAR HGB CONC 33.3 g/dL (33.0-36.5); MEAN CORPUSCULAR VOLUME 84.6 FL (78-98); MEAN PLATELET VOLUME 9.1 FL (7.4-10.4); MONOCYTES # (AUTO) 0.4 X10'3 (0-0.9); MONOCYTES % (AUTO) 3.6 % (2-12); NEUTROPHILS % (AUTO) 84.1 % (42-75); PLATELET COUNT 114 X10'3 (140-440); RED BLOOD COUNT 5.07 X10'6 (4.70-6.10); RED CELL DISTRIBUTION WIDTH 13.5 % (11.5-14.5); WHITE BLOOD COUNT 11.9 X10'3 (4.5-11.0)
[2019-09-29 12:02] LABS: PARTIAL THROMBOPLASTIN TIME 34 SECONDS (22-32)
[2019-09-29 12:03] LABS: ALANINE AMINOTRANSFERASE 38 U/L (12-78); ALBUMIN/GLOBULIN RATIO 1.5 (1.1-1.5); ALKALINE PHOSPHATASE 54 IU/L (46-116); ANION GAP 7 (8-16); ASPARTATE AMINO TRANSFERASE 52 U/L (10-37); BLOOD UREA NITROGEN 12 MG/DL (7-18); BUN/CREATININE RATIO 11.8 (5.4-32.0); CALCIUM 7.5 MG/DL (8.5-10.1); CHLORIDE 112 MMOL/L (99-107); CREATININE 1.02 MG/DL (0.60-1.10); GLUCOSE 132 MG/DL (70-104); MAGNESIUM 2.2 MG/DL (1.5-2.4); POTASSIUM 4.6 MMOL/L (3.5-5.1); SODIUM 144 MMOL/L (135-145); TOTAL CARBON DIOXIDE 25.2 MMOL/L (24-32); eGFR 76 ML/MIN
[2019-09-29] MEDS: albumin (Human) 5% 250ml 250 ML IV PRN ×3 (12:16→17:18)
[2019-09-29] MEDS: gabapentin 300mg capsule PO SCH ×3 (12:18→20:29)
[2019-09-29] MEDS: morphine 4 MG/ML inj SYRINge IV PRN ×2 (12:27→13:48)
--- NOTE | 2019-09-29 12:38 | NUR ---
OG tube not correctly positioned. Tried to pull back and insert again but tube will not pass; it was kinked and had some blood in it when pulled completely out. unable to give PO meds at this time
[2019-09-29] MEDS: magnesium 2GM in 50ml NS 50 ML IV PRN (12:48)
--- NOTE | 2019-09-29 13:12 | NUR ---
Nutrition consult: Pt s/p CABG x 4 today. Pt would benefit from nutrition therapy s/p cardiac surgery education once stable. Will continue to follow. Addendum: 09/29/19 at [address] Amended: Links added.
[2019-09-29 13:26] LABS: ACTIVATED CLOTTING TIME 146 SEC (101-148)
[2019-09-29] MEDS: ceFAZolin 1GM/D5W- ADD-VANTAGE 50 ML IV SCH ×2 (15:09→23:41)
[2019-09-29] MEDS ORDERED: NORepinephrine 8mg/ 250ml NS 250 ML IV PRN (16:19)
[2019-09-29] MEDS ORDERED: NORepinephrine 8mg/ 250ml NS 250 ML IV ONE (16:19)
[2019-09-29 16:20] LABS: ABG BASE EXCESS -5.5 mmol/L (-2.0-3.0); ABG HCO3 20.1 mmol/L (22.0-26.0); ABG OXYGEN SATURATION 95.8 % (95-98); ABG PCO2 (T) 39.9 mmHg (35.0-45.0); ABG PH (T) 7.321 (7.350-7.450); FCOHb 0.3 % (0.5-1.5); FMetHb 0.3 % (0.3-1.12); FO2Hb 95.2 % (94-100)
[2019-09-29 18:03] LABS: BASOPHILS % (AUTO) 0.1 % (0-1); EOSINOPHILS % (AUTO) 0 % (0-6); HEMATOCRIT 40.4 % (42.0-52.0); HEMOGLOBIN 13.1 g/dl (14.0-17.9); LYMPHOCYTES # (AUTO) 1.1 X10'3 (1.1-4.8); LYMPHOCYTES % (AUTO) 6.4 % (21-51); MEAN CORPUSCULAR HEMOGLOBIN 27.8 PG (27.0-31.0); MEAN CORPUSCULAR HGB CONC 32.5 g/dL (33.0-36.5); MEAN CORPUSCULAR VOLUME 85.5 FL (78-98); MEAN PLATELET VOLUME 9.6 FL (7.4-10.4); MONOCYTES # (AUTO) 0.3 X10'3 (0-0.9); MONOCYTES % (AUTO) 2.1 % (2-12); NEUTROPHILS # (AUTO) 15.1 X10'3 (1.8-7.7); NEUTROPHILS % (AUTO) 91.4 % (42-75); PLATELET COUNT 150 X10'3 (140-440); RED BLOOD COUNT 4.73 X10'6 (4.70-6.10); RED CELL DISTRIBUTION WIDTH 13.6 % (11.5-14.5); WHITE BLOOD COUNT 16.5 X10'3 (4.5-11.0)
[2019-09-29 18:10] LABS: ALBUMIN 4.1 G/DL (3.4-5.0); ANION GAP 13 (8-16); BLOOD UREA NITROGEN 14 MG/DL (7-18); BUN/CREATININE RATIO 9.1 (5.4-32.0); CALCIUM 7.8 MG/DL (8.5-10.1); CHLORIDE 110 MMOL/L (99-107); CREATININE 1.54 MG/DL (0.60-1.10); GLUCOSE 166 MG/DL (70-104); MAGNESIUM 2.5 MG/DL (1.5-2.4); PHOSPHORUS 4.8 MG/DL (2.3-4.5); POTASSIUM 3.8 MMOL/L (3.5-5.1); SODIUM 144 MMOL/L (135-145); TOTAL CARBON DIOXIDE 21.4 MMOL/L (24-32); eGFR 47 ML/MIN
--- NOTE | 2019-09-29 18:15 | NUR ---
Patient in room ICU 2045. I have received report from Damion AUSTIN and had the opportunity to ask questions and assume patient care.
[2019-09-29] MEDS: potassium Cl 20mEq/100mL bag 100 ML IV PRN ×2 (19:22→20:30)
[2019-09-29] MEDS: sennosides/docusate sodium tablet PO SCH (20:29)
[2019-09-29] MEDS: mupirocin 2% nasal ointment 1gm UD NS SCH (20:30)
[2019-09-29] MEDS: vancomycin/NS 1 GM ADD-VANTAGE 250 ML IV SCH (20:34)
[2019-09-29] MEDS: HYDROcodone/acetaminophen 10/325mg tab PO PRN (21:18)
[2019-09-30] VITALS (23 sets, daily range): BP systolic 90–126; BP diastolic 61–76
[2019-09-30 01:36] LABS: BASOPHILS % (AUTO) 0 % (0-1); EOSINOPHILS % (AUTO) 0 % (0-6); HEMATOCRIT 36.6 % (42.0-52.0); HEMOGLOBIN 12.3 g/dl (14.0-17.9); LYMPHOCYTES # (AUTO) 0.6 X10'3 (1.1-4.8); LYMPHOCYTES % (AUTO) 5.2 % (21-51); MEAN CORPUSCULAR HEMOGLOBIN 28.3 PG (27.0-31.0); MEAN CORPUSCULAR HGB CONC 33.5 g/dL (33.0-36.5); MEAN CORPUSCULAR VOLUME 84.3 FL (78-98); MEAN PLATELET VOLUME 9.4 FL (7.4-10.4); MONOCYTES # (AUTO) 0.5 X10'3 (0-0.9); MONOCYTES % (AUTO) 4.2 % (2-12); NEUTROPHILS # (AUTO) 10.2 X10'3 (1.8-7.7); NEUTROPHILS % (AUTO) 90.6 % (42-75); PLATELET COUNT 110 X10'3 (140-440); RED BLOOD COUNT 4.34 X10'6 (4.70-6.10); RED CELL DISTRIBUTION WIDTH 13.8 % (11.5-14.5); WHITE BLOOD COUNT 11.3 X10'3 (4.5-11.0)
[2019-09-30 01:47] LABS: PARTIAL THROMBOPLASTIN TIME 28 SECONDS (22-32)
[2019-09-30 01:48] LABS: ALANINE AMINOTRANSFERASE 36 U/L (12-78); ALBUMIN 3.6 G/DL (3.4-5.0); ALBUMIN/GLOBULIN RATIO 1.8 (1.1-1.5); ALKALINE PHOSPHATASE 42 IU/L (46-116); ANION GAP 11 (8-16); ASPARTATE AMINO TRANSFERASE 42 U/L (10-37); BILIRUBIN,TOTAL 0.7 MG/DL (0.1-1.0); BLOOD UREA NITROGEN 12 MG/DL (7-18); BUN/CREATININE RATIO 10.6 (5.4-32.0); CALCIUM 7.6 MG/DL (8.5-10.1); CHLORIDE 110 MMOL/L (99-107); CREATININE 1.13 MG/DL (0.60-1.10); GLUCOSE 118 MG/DL (70-104); PHOSPHORUS 3.2 MG/DL (2.3-4.5); POTASSIUM 3.9 MMOL/L (3.5-5.1); SODIUM 145 MMOL/L (135-145); TOTAL PROTEIN 5.6 G/DL (6.4-8.2); eGFR 68 ML/MIN
[2019-09-30] MEDS: potassium Cl 20mEq/100mL bag 100 ML IV PRN ×2 (02:17→03:21)
[2019-09-30] MEDS: HYDROcodone/acetaminophen 10/325mg tab PO PRN ×4 (02:18→20:41)
--- NOTE | 2019-09-30 05:45 | NUR ---
Patient has been hemodynamically stable all night and off inotropes. Removed PA catheter, pressure held until hemostasis achieved. Dressing placed using sterile technique. Patient tolerated procedure well. Will continue to monitor.
--- NOTE | 2019-09-30 06:18 | NUR ---
Problems reprioritized. Patient report given, questions answered & plan of care reviewed with Kiera AUSTIN.
[2019-09-30] MEDS: atorvastatin 10mg tablet PO SCH (07:28)
[2019-09-30] MEDS: gabapentin 300mg capsule PO SCH ×3 (07:29→20:40)
[2019-09-30] MEDS: sennosides/docusate sodium tablet PO SCH ×2 (07:29→20:41)
[2019-09-30] MEDS: metoprolol tartrate 50mg tablet PO SCH ×2 (07:30→20:42)
[2019-09-30] MEDS: ceFAZolin 1GM/D5W- ADD-VANTAGE 50 ML IV SCH ×3 (07:31→23:54)
[2019-09-30] MEDS: mupirocin 2% nasal ointment 1gm UD NS SCH ×2 (07:49→20:40)
[2019-09-30] MEDS: vancomycin/NS 1 GM ADD-VANTAGE 250 ML IV SCH ×2 (07:49→20:40)
[2019-09-30] MEDS: aspirin 81mg tablet.DR PO SCH (07:53)
[2019-09-30] MEDS ORDERED: metoprolol tartrate 12.5mg (1/2 tablet) PO SCH (08:00)
[2019-09-30] MEDS ORDERED: aspirin 325mg tablet, delayed-release (Ecotrin) PO SCH (08:00)
[2019-09-30] MEDS ORDERED: METO25TA6 PO (10:16)
--- NOTE | 2019-09-30 13:21 | NUR ---
F/u: Pt seen by RD for written/verbal CABG/HH diet eds w/ RD contact information provided. Pt is agreeable to any flavor Melecio smoothie BIDLD; strawberry will be added given lowest CHO content and pt hx T2DM. notified. A1C less than 7 at this time and not appropriate for DM ed. Will continue to monitor. Addendum: 09/30/19 at [address] Amended: Links added.
[2019-09-30] MEDS: Insulin Reg/NS 100units/100mL 100 ML IV SCH (14:50)
[2019-09-30] MEDS: JUVEN Smoothie Arginine/Glut./Ca2+Bmb (Juven 19.3pkt) 240ml cup PO SCH (17:30)
--- NOTE | 2019-09-30 18:03 | NUR ---
Problems reprioritized. Patient report given, questions answered & plan of care reviewed with NORMAN Dias.
--- NOTE | 2019-09-30 18:15 | NUR ---
Patient in room ICU 2045. I have received report from Kiera AUSTIN and had the opportunity to ask questions and assume patient care.
[2019-10-01] VITALS (18 sets, daily range): BP systolic 86–154; BP diastolic 58–83
[2019-10-01 03:05] LABS: BASOPHILS % (AUTO) 0 % (0-1); EOSINOPHILS % (AUTO) 0 % (0-6); HEMATOCRIT 34.7 % (42.0-52.0); HEMOGLOBIN 11.2 g/dl (14.0-17.9); LYMPHOCYTES # (AUTO) 0.8 X10'3 (1.1-4.8); MEAN CORPUSCULAR HEMOGLOBIN 27.6 PG (27.0-31.0); MEAN CORPUSCULAR HGB CONC 32.3 g/dL (33.0-36.5); MEAN CORPUSCULAR VOLUME 85.4 FL (78-98); MEAN PLATELET VOLUME 9.7 FL (7.4-10.4); MONOCYTES # (AUTO) 0.9 X10'3 (0-0.9); MONOCYTES % (AUTO) 5.6 % (2-12); NEUTROPHILS % (AUTO) 89.4 % (42-75); PLATELET COUNT 124 X10'3 (140-440); RED BLOOD COUNT 4.07 X10'6 (4.70-6.10); RED CELL DISTRIBUTION WIDTH 13.9 % (11.5-14.5); WHITE BLOOD COUNT 15.7 X10'3 (4.5-11.0)
[2019-10-01 03:21] LABS: ALBUMIN 3.2 G/DL (3.4-5.0); ANION GAP 6 (8-16); BLOOD UREA NITROGEN 16 MG/DL (7-18); BUN/CREATININE RATIO 14.7 (5.4-32.0); CALCIUM 8.1 MG/DL (8.5-10.1); CHLORIDE 108 MMOL/L (99-107); CREATININE 1.09 MG/DL (0.60-1.10); GLUCOSE 138 MG/DL (70-104); MAGNESIUM 2.4 MG/DL (1.5-2.4); PHOSPHORUS 2.7 MG/DL (2.3-4.5); POTASSIUM 4.4 MMOL/L (3.5-5.1); SODIUM 143 MMOL/L (135-145); TOTAL CARBON DIOXIDE 28.7 MMOL/L (24-32); eGFR 70 ML/MIN
[2019-10-01] MEDS: potassium Cl 20 mEq SR tablet PO PRN (05:03)
[2019-10-01] MEDS: magnesium 2GM in 50ml NS 50 ML IV PRN (05:04)
--- NOTE | 2019-10-01 06:22 | NUR ---
Problems reprioritized. Patient report given, questions answered & plan of care reviewed with Suyapa AUSTIN.
[2019-10-01] MEDS: metoprolol tartrate 50mg tablet PO SCH (07:34)
[2019-10-01] MEDS: gabapentin 300mg capsule PO SCH (07:38)
[2019-10-01] MEDS: sennosides/docusate sodium tablet PO SCH ×2 (07:38→20:39)
[2019-10-01] MEDS: atorvastatin 10mg tablet PO SCH (07:38)
[2019-10-01] MEDS: pantoprazole 40mg Tablet.DR PO SCH (07:38)
[2019-10-01] MEDS: aspirin 81mg tablet.DR PO SCH (07:38)
[2019-10-01] MEDS: mupirocin 2% nasal ointment 1gm UD NS SCH (07:42)
[2019-10-01] MEDS ORDERED: furosemide 40mg/4ml inj IV ONE (08:30)
[2019-10-01] MEDS ORDERED: potassium Cl 20 mEq SR tablet PO PRN (08:30)
[2019-10-01] MEDS ORDERED: magnesium 2GM in 50ml NS 50 ML IV PRN (08:30)
[2019-10-01] MEDS ORDERED: magnesium 4gm in 100ml NS 100 ML IV PRN (08:30)
[2019-10-01] MEDS ORDERED: potassium Cl 20mEq/100mL bag 100 ML IV PRN (08:30)
[2019-10-01] MEDS: JUVEN Smoothie Arginine/Glut./Ca2+Bmb (Juven 19.3pkt) 240ml cup PO SCH ×2 (12:30→17:30)
--- NOTE | 2019-10-01 14:45 | NUR ---
Patient in room ICU 2045, going to RM 308. I have received report from NORMAN Gordillo and had the opportunity to ask questions and assume patient care.
--- NOTE | 2019-10-01 15:30 | NUR ---
RECEIVED REPORT FROM NORMAN HAMILTON. PT. ARRIVED ON UNIT AT 1530 WITH NO JIMENEZ CATHETER AND VOIDING WELL ON HIS OWN. PT. SURGICAL INCISIONS ARE DRESSED AND ARE CDI. I AGREE WITH NORMAN SIMMONS CHARTING.
--- NOTE | 2019-10-01 15:36 | NUR ---
Pt transferred to [facility] Rm 308. In stable condition.
[2019-10-01] MEDS: HYDROcodone/acetaminophen 10/325mg tab PO PRN ×2 (16:13→23:32)
--- NOTE | 2019-10-01 18:15 | NUR ---
Patient in room MED 308. I have received report from IJEOMA AUSTIN and had the opportunity to ask questions and assume patient care.
--- NOTE | 2019-10-01 18:46 | NUR ---
Problems reprioritized. Patient report given, questions answered & plan of care reviewed with NORMAN Mccarty.
--- NOTE | 2019-10-01 18:54 | NUR ---
Student documentation: I have reviewed and agree with all interventions, assessments performed and documented by CORBY Fisher.
[2019-10-01] MEDS: potassium Cl 20 mEq SR tablet PO SCH (20:39)
[2019-10-01] MEDS: magnesium Cl slow-release 64mg tablet PO SCH (20:39)
[2019-10-01] MEDS: metoprolol tartrate 25mg tablet PO SCH (20:39)
[2019-10-01] MEDS: latanoprost 0.005% 2.5ml ophthalmic drops EACHEYE SCH (23:33)
[2019-10-02 02:00] VITALS: BP 108/71
[2019-10-02 05:48] LABS: BASOPHILS % (AUTO) 0.2 % (0-1); EOSINOPHILS % (AUTO) 0.2 % (0-6); HEMATOCRIT 41.1 % (42.0-52.0); HEMOGLOBIN 13.3 g/dl (14.0-17.9); LYMPHOCYTES # (AUTO) 1.9 X10'3 (1.1-4.8); LYMPHOCYTES % (AUTO) 14.9 % (21-51); MEAN CORPUSCULAR HEMOGLOBIN 27.8 PG (27.0-31.0); MEAN CORPUSCULAR HGB CONC 32.5 g/dL (33.0-36.5); MEAN CORPUSCULAR VOLUME 85.6 FL (78-98); MEAN PLATELET VOLUME 9.5 FL (7.4-10.4); MONOCYTES # (AUTO) 1.5 X10'3 (0-0.9); MONOCYTES % (AUTO) 11.2 % (2-12); NEUTROPHILS # (AUTO) 9.5 X10'3 (1.8-7.7); NEUTROPHILS % (AUTO) 73.5 % (42-75); PLATELET COUNT 160 X10'3 (140-440); RED CELL DISTRIBUTION WIDTH 13.9 % (11.5-14.5); WHITE BLOOD COUNT 12.9 X10'3 (4.5-11.0)
[2019-10-02 06:00] VITALS: BP 107/77
[2019-10-02 06:02] LABS: ALBUMIN 3.7 G/DL (3.4-5.0); ANION GAP 8 (8-16); BLOOD UREA NITROGEN 19 MG/DL (7-18); BUN/CREATININE RATIO 17.4 (5.4-32.0); CALCIUM 8.7 MG/DL (8.5-10.1); CHLORIDE 105 MMOL/L (99-107); CREATININE 1.09 MG/DL (0.60-1.10); GLUCOSE 107 MG/DL (70-104); MAGNESIUM 2.2 MG/DL (1.5-2.4); SODIUM 142 MMOL/L (135-145); TOTAL CARBON DIOXIDE 28.6 MMOL/L (24-32); eGFR 70 ML/MIN
--- NOTE | 2019-10-02 06:10 | NUR ---
Problems reprioritized. Patient report given, questions answered & plan of care reviewed with Carla AUSTIN.
--- NOTE | 2019-10-02 06:18 | NUR ---
Patient in room MED 308. I have received report from Bibiana and had the opportunity to ask questions and assume patient care.
[2019-10-02] MEDS: magnesium Cl slow-release 64mg tablet PO SCH ×2 (06:28→20:23)
[2019-10-02] MEDS: HYDROcodone/acetaminophen 10/325mg tab PO PRN ×3 (06:41→19:10)
[2019-10-02] MEDS: aspirin 81mg tablet.DR PO SCH (07:42)
[2019-10-02] MEDS: potassium Cl 20 mEq SR tablet PO SCH ×2 (07:42→20:24)
[2019-10-02] MEDS: pantoprazole 40mg Tablet.DR PO SCH (07:42)
[2019-10-02] MEDS: atorvastatin 20mg tablet PO SCH (07:43)
[2019-10-02] MEDS: metoprolol tartrate 25mg tablet PO SCH ×2 (07:43→20:00)
[2019-10-02] MEDS: sennosides/docusate sodium tablet PO SCH ×2 (07:44→20:24)
[2019-10-02] MEDS: potassium Cl 20 mEq SR tablet PO PRN (09:47)
[2019-10-02 11:00] VITALS: BP 108/72
[2019-10-02] MEDS: JUVEN Smoothie Arginine/Glut./Ca2+Bmb (Juven 19.3pkt) 240ml cup PO SCH ×2 (12:30→17:30)
[2019-10-02 15:11] VITALS: BP 103/71
--- NOTE | 2019-10-02 18:22 | NUR ---
Problems reprioritized. Patient report given, questions answered & plan of care reviewed with
--- NOTE | 2019-10-02 18:30 | NUR ---
Patient in room MED 308. I have received report from TEJINDER AUSTIN and had the opportunity to ask questions and assume patient care. Addendum: 10/02/19 at 1831 by Fabi Pizarro RN Amended: Links added.
--- NOTE | 2019-10-02 18:43 | NUR ---
Problems reprioritized. Patient report given, questions answered & plan of care reviewed with MEENA AUSTIN. Addendum: 10/02/19 at 1844 by Fabi Pizarro RN Amended: Links added.
[2019-10-02 19:00] VITALS: BP 110/71
--- NOTE | 2019-10-02 19:30 | NUR ---
CALLED TI [facility] REGARDING ELEVATED HR, SOME FLUTTER ACTIVITY WITNESSED ON BRAND AMBASSADOR PROMOTIONAL MODEL; WAS INSTRUCTED TO ORDER ONE TIME DOSE OF 25 MG ADDITIONAL METOPROLOL TARTRATE, FOR A TOTAL OF 50 MG METOPROLOL TARTRATE THIS 1999 MED PASS. Addendum: 10/03/19 at 0037 by Shavonne Haji RN WILL CONTINUE TO MONITOR FOR S/S OF EELEVATED HR, FLUTTER ACTIVITY ON TELEMETRY.
[2019-10-02] MEDS ORDERED: metoprolol tartrate 50mg tablet PO ONE (20:15)
[2019-10-02] MEDS: latanoprost 0.005% 2.5ml ophthalmic drops EACHEYE SCH (20:26)
[2019-10-02 22:00] VITALS: BP 106/72
[2019-10-03 02:00] VITALS: BP 112/74
[2019-10-03] MEDS: HYDROcodone/acetaminophen 10/325mg tab PO PRN (02:08)
[2019-10-03 05:39] LABS: BASOPHILS % (AUTO) 0.3 % (0-1); EOSINOPHILS # (AUTO) 0.1 X10'3 (0-0.9); EOSINOPHILS % (AUTO) 1.1 % (0-6); HEMATOCRIT 40.7 % (42.0-52.0); HEMOGLOBIN 13.2 g/dl (14.0-17.9); LYMPHOCYTES # (AUTO) 1.9 X10'3 (1.1-4.8); LYMPHOCYTES % (AUTO) 17.1 % (21-51); MEAN CORPUSCULAR HEMOGLOBIN 27.7 PG (27.0-31.0); MEAN CORPUSCULAR HGB CONC 32.4 g/dL (33.0-36.5); MEAN CORPUSCULAR VOLUME 85.5 FL (78-98); MEAN PLATELET VOLUME 9.4 FL (7.4-10.4); MONOCYTES # (AUTO) 0.9 X10'3 (0-0.9); MONOCYTES % (AUTO) 8.4 % (2-12); NEUTROPHILS # (AUTO) 8.1 X10'3 (1.8-7.7); NEUTROPHILS % (AUTO) 73.1 % (42-75); PLATELET COUNT 215 X10'3 (140-440); RED BLOOD COUNT 4.76 X10'6 (4.70-6.10); RED CELL DISTRIBUTION WIDTH 13.7 % (11.5-14.5)
[2019-10-03 05:52] LABS: ALBUMIN 3.4 G/DL (3.4-5.0); ANION GAP 10 (8-16); BLOOD UREA NITROGEN 20 MG/DL (7-18); CALCIUM 8.8 MG/DL (8.5-10.1); CHLORIDE 104 MMOL/L (99-107); CREATININE 0.91 MG/DL (0.60-1.10); GLUCOSE 122 MG/DL (70-104); POTASSIUM 4.1 MMOL/L (3.5-5.1); SODIUM 140 MMOL/L (135-145); TOTAL CARBON DIOXIDE 25.6 MMOL/L (24-32); eGFR 87 ML/MIN
[2019-10-03 06:00] VITALS: BP 107/80
[2019-10-03] MEDS: pantoprazole 40mg Tablet.DR PO SCH (06:37)
--- NOTE | 2019-10-03 07:42 | NUR ---
Patient in room MED 308. I have received report from Shavonne AUSTIN and had the opportunity to ask questions and assume patient care.
--- NOTE | 2019-10-03 08:04 | NUR ---
Problems reprioritized. Patient report given, questions answered & plan of care reviewed with DAISY AUSTIN.
[2019-10-03] MEDS: magnesium Cl slow-release 64mg tablet PO SCH (08:22)
[2019-10-03] MEDS: metoprolol tartrate 25mg tablet PO SCH (08:22)
[2019-10-03] MEDS: atorvastatin 20mg tablet PO SCH (08:23)
[2019-10-03] MEDS: aspirin 81mg tablet.DR PO SCH (08:23)
[2019-10-03] MEDS: sennosides/docusate sodium tablet PO SCH (08:23)
[2019-10-03] MEDS: potassium Cl 20 mEq SR tablet PO SCH (08:23)
[2019-10-03] MEDS ORDERED: HYDR-4353 PO (08:32)
[2019-10-03 11:00] VITALS: BP 98/73
--- NOTE | 2019-10-03 12:07 | NUR ---
Per MD, patient stable for discharge home. Discharge packet completed and given to patient-- education given and all questions answered. [place] prescription faxed to [facility] and confirmed with pharmacy that it was ready for pickup. Pt made aware that he is to follow up with Dr Mireles (phone # for office given on discharge packet)--unable to make appt because it is Friday. IV removed with catheter intact and patient disconnected from bedside telemetry monitoring. Spoke with pt's son regarding discharge, and also educated him about new prescriptions, followup appts, and that patient is to take short showers while incision heals. Patient escorted from hospital via wheelchair, accompanied by staff, and driven home by daughter via private vehicle.
== END 2019-10-03 12:15 | disposition home or self-care (01) | DRG 166 ==
LOC: PAS IN 05:24 → EDSTATUS 08:30 → ICU 2S 11:30 → MED 3N 10-01 15:30
PROVIDERS: ADMIT Thoracic Surgery (Cardiothoracic Vascular Surgery); ATTEND Thoracic Surgery (Cardiothoracic Vascular Surgery)
PROC: 0212093 Bypass Coronary Artery, Three Arteries from Coronary Artery with Autologous Venous Tissue, Open Approach (ICD-10-PCS; 2019-09-29)
PROC: B24BZZ4 Ultrasonography of Heart with Aorta, Transesophageal (ICD-10-PCS; 2019-09-29)
PROC: 06BY4ZZ Excision of Lower Vein, Percutaneous Endoscopic Approach (ICD-10-PCS; 2019-09-29)
PROC: 0210099 Bypass Coronary Artery, One Artery from Left Internal Mammary with Autologous Venous Tissue, Open Approach (ICD-10-PCS; principal; 2019-09-29 07:04)
DX: I25.10 Atherosclerotic heart disease of native coronary artery without angina pectoris (principal); E11.9 Type 2 diabetes mellitus without complications; I10 Essential (primary) hypertension; I25.2 Old myocardial infarction; I25.5 Ischemic cardiomyopathy; Z90.49 Acquired absence of other specified parts of digestive tract
CPT/HCPCS: 0232T; 36415; 36600; 71045; 71046; 80048; 80053; 81003; 82330; 82435; 82803; 82947; 82948; 83036; 83735; 84100; 84132; 84295; 85018; 85025; 85347; 85384; 85610; 85730; 86885; 86900; 86901; 86920; 87081; 93005; 93308; 93312; 93325; 94010; 94668; 94760; 97110; 97116; 97161; 97530; A4618; A6258; A6402; A6449; A7000; A7048; C1713; C1751; C9113; G0378; J0690; J1644; J1815; J1940; J2001; J2060; J2150; J2250; J2270; J2370; J2440; J2704; J2720; J2930; J3370; J3475; J3480; J3490; J7030; J7040; J7050; J7060; J7120; P9047